=== PATIENT | male | born 1995 | race Caucasian/White ===

== ENCOUNTER 2019-06-11 08:25 | Emergency (ER) | payer MEDICAID ==
[~2019-06-11] VITALS: Ht 182.9 cm; Wt 88.6 kg
--- NOTE | 2019-06-11 08:39 | NUR ---
VERY STRONG SMELL OF GAS ASSOCIATED W/ PT WHO ARRIVED W/ AN ANKLE BRACELET ON RIGHT LEG. Addendum: 06/11/19 at 0840 by DOMINIC ACCOMPANIED BY [facility] #[id number]
[2019-06-11 09:12] VITALS: BP 120/66
== END 2019-06-11 09:16 ==
LOC: ER 08:26
DX: Z04.3 Encounter for examination and observation following other accident (principal); F12.90 Cannabis use, unspecified, uncomplicated; F15.90 Other stimulant use, unspecified, uncomplicated; V87.7XXA Person injured in collision between other specified motor vehicles (traffic), initial encounter; Y93.89 Activity, other specified; Y92.488 Other paved roadways as the place of occurrence of the external cause; Y99.8 Other external cause status
CPT/HCPCS: 99283

== ENCOUNTER 2022-12-20 08:08 | Emergency (ER) | payer MEDICAID ==
[~2022-12-20] VITALS: Ht 182.9 cm; Wt 103.6 kg
[2022-12-20 08:43] VITALS: BP 140/74; PULSE 78; RESP 18; TEMP 97.5; O2SAT 99
[2022-12-20] MEDS ORDERED: bacitracin 15gm ointment TP ONE (10:35)
[2022-12-20] MEDS ORDERED: TETanus/Pertussis (Acell)/Diphther VAC/PF (Tdap-Adult) 0.5ml syringe IMVAC ONE (10:35)
[2022-12-20] MEDS ORDERED: LIDOcaine 1% 30ml preserv. free vial IJ ONE (10:35)
== END 2022-12-20 11:15 | disposition home or self-care (01) ==
LOC: ER 08:08
DX: S61.216A Laceration without foreign body of right little finger without damage to nail, initial encounter (principal); F12.90 Cannabis use, unspecified, uncomplicated; F15.90 Other stimulant use, unspecified, uncomplicated; Z23 Encounter for immunization; Y30.XXXA Falling, jumping or pushed from a high place, undetermined intent, initial encounter; Y93.39 Activity, other involving climbing, rappelling and jumping off; Y92.89 Other specified places as the place of occurrence of the external cause; Y99.8 Other external cause status
CPT/HCPCS: 12002; 90471; 90715; 99283; A6258; A6449